=== PATIENT | male | born 1990 | race Caucasian/White ===

== ENCOUNTER 2016-08-11 08:03 | Emergency (ER) | payer BC ==
[2016-08-11 08:11] VITALS: BP 141/81; PULSE 89; RESP 18; TEMP 99.2
[2016-08-11] MEDS ORDERED: ORPHENADRINE 30 MG/ML 2 ML VIAL IM STA (08:23)
[2016-08-11] MEDS ORDERED: KETOROLAC 60 MG/2 ML VIAL IM STA (08:23)
--- NOTE | 2016-08-11 08:26 | ED ---
Back Pain HPI - General Chief Complaint: Back Pain/Injury Stated Complaint: back pain Time Seen by Provider: 08/11/16 08:12 Source: patient Limitations: no limitations - History of Present Illness Initial Comments: Denies actual male patient presents to emergency department for complaints of right upper back spasm, to the area below the right shoulder blade. Patient states that this started a couple of days ago, seemed to start getting better, and then last evening got worse for him. Patient states that whenever he tries to do any twisting motion with his back the area spasms and makes it difficult for him to breathe. Patient states that he was unable to sleep last night due to this. Patient did try ibuprofen states it did not help much. Patient does not have any limitations with range of motion to the right arm. Patient denies any shortness of breath at rest, cough, fever, chills, chest pain, abdominal pain, nausea, vomiting, has patient, diarrhea, dysuria, hematuria, urgency or frequency. Patient denies any known injury. - Related Data Previous Rx's Medication Instructions Recorded Cyclobenzaprine [Flexeril] 10 mg PO TID #10 tab 08/11/16 Ibuprofen [Motrin] 600 mg PO Q6HR PRN #30 tab 08/11/16 Allergies Allergy/AdvReac Type Severity Reaction Status Date / Time No Known Allergies Allergy Verified 08/11/16 08:10 Review of Systems ROS Statement: Those systems with pertinent positive or pertinent negative responses have been documented in the HPI. ROS Other: All systems not noted in ROS Statement are negative. Past Medical History Past Medical History: No Reported History History of Any Multi-Drug Resistant Organisms: None Reported Past Surgical History: No Surgical Hx Reported Past Psychological History: No Psychological Hx Reported Smoking Status: Never smoker Past Alcohol Use History: Occasional Past Drug Use History: None Reported General Exam Limitations: no limitations General appearance: alert, in no apparent distress Head exam: Present: atraumatic, normocephalic, normal inspection Eye exam: Present: normal appearance, PERRL, EOMI. Absent: scleral icterus, conjunctival injection, periorbital swelling ENT exam: Present: normal exam, mucous membranes moist Neck exam: Present: normal inspection, full ROM. Absent: tenderness, meningismus, lymphadenopathy Respiratory exam: Present: normal lung sounds bilaterally. Absent: respiratory distress, wheezes, rales, rhonchi, stridor Cardiovascular Exam: Present: regular rate, normal rhythm, normal heart sounds. Absent: systolic murmur, diastolic murmur, rubs, gallop, clicks GI/Abdominal exam: Present: soft, normal bowel sounds. Absent: distended, tenderness, guarding, rebound, rigid Extremities exam: Present: normal inspection, full ROM, normal capillary refill. Absent: tenderness, pedal edema, joint swelling, calf tenderness Back exam: Present: normal inspection. Absent: full ROM (Spasm with twisting motion, left or right), tenderness Neurological exam: Present: alert, oriented X3, CN II-XII intact Psychiatric exam: Present: normal affect, normal mood Skin exam: Present: warm, dry, intact, normal color. Absent: rash Course Vital Signs 08/11/16 08:07 Temperature 99.2 F Pulse Rate 89 Respiratory 18 Rate Blood Pressure 141/81 O2 Sat by Pulse 99 Oximetry Medical Decision Making - Medical Decision Making 26-year-old male patient presented to emergency department today for complaints of spasms to his right upper back, subscapular area. Patient onset of spasms during exam with twisting motion at the waist. Patient has no tenderness to the area, and full range of motion to the right shoulder. Symptoms most likely to represent muscle spasm. Patient will be given IM Norflex and Toradol here. Patient be discharged home with prescription for ibuprofen and Flexeril with instructions to apply warm moist heat 20 minutes on at least 4 times a day. Patient agrees to follow-up with his primary care physician for any continued symptoms. Patient agrees to return for any worsening, new, or concerning symptoms. Disposition Clinical Impression: Muscle spasm Disposition: HOME SELF-CARE Condition: Stable Instructions: Muscle Spasm (ED) Additional Instructions: Warm moist heat to the area 20 minutes on at least four times per day. Take medications as directed for pain relief. Follow up with primary care physician for continued symptoms. Return for any worsening, new, or concerning symptoms. Prescriptions: Cyclobenzaprine [Flexeril] 10 mg PO TID #10 tab Ibuprofen [Motrin] 600 mg PO Q6HR PRN #30 tab PRN Reason: Pain Referrals: Antonio Diaz MD [Primary Care Provider] - 1-2 days Time of Disposition: 08:26
== END 2016-08-11 13:53 | disposition home or self-care (01) ==
LOC: EC 08:03
DX: M62.830 Muscle spasm of back (principal)
CPT/HCPCS: 99283; 96372 ×2; J2360; J1885

== ENCOUNTER 2019-03-13 13:18 | Emergency (ER) | payer BC ==
[2019-03-13 13:22] VITALS: RESP 16
[2019-03-13] MEDS ORDERED: SODIUM CHLORIDE 0.9% 500 ML 500 ML IV STA (13:43)
--- NOTE | 2019-03-13 13:46 | ED ---
Abdominal Pain HPI - General Chief Complaint: Abdominal Pain Stated Complaint: Abd Pain Time Seen by Provider: 03/13/19 13:25 Source: patient Mode of arrival: ambulatory Limitations: no limitations - History of Present Illness Initial Comments: Patient is a 29-year-old male presenting to emergency Department with a chief complaint of abdominal pain. Patient reports the symptoms started about 2 days ago in the right lower quadrant with a cramping sensation that is about a 4. Patient reports intermittent nausea but no actual vomiting. Patient denies any increased urgency or frequency or dysuria. Patient denies diarrhea or constipation. Patient denies any trauma to the region. Patient reports the pain is exacerbated whenever pressure is applied to the region. Patient reports the pain is not related to healing take. Patient denies any previous abdominal surgery. Patient denies fevers night sweats or chills. Patient denies penile discharge, testicular pain or swelling. - Related Data Previous Rx's Medication Instructions Recorded Ondansetron Odt [Zofran Odt] 4 mg PO Q8HR PRN #10 tab 03/13/19 Allergies Allergy/AdvReac Type Severity Reaction Status Date / Time No Known Allergies Allergy Verified 03/13/19 13:59 Review of Systems ROS Statement: Those systems with pertinent positive or pertinent negative responses have been documented in the HPI. ROS Other: All systems not noted in ROS Statement are negative. Past Medical History Past Medical History: No Reported History History of Any Multi-Drug Resistant Organisms: None Reported Past Surgical History: No Surgical Hx Reported Past Psychological History: No Psychological Hx Reported Smoking Status: Light tobacco smoker Past Alcohol Use History: Occasional Past Drug Use History: None Reported General Exam Limitations: no limitations General appearance: alert, in no apparent distress Head exam: Present: atraumatic, normocephalic, normal inspection Eye exam: Present: normal appearance Pupils: Present: normal accommodation ENT exam: Present: normal exam, normal oropharynx, mucous membranes moist, TM's normal bilaterally, normal external ear exam Neck exam: Present: normal inspection, full ROM Respiratory exam: Present: normal lung sounds bilaterally Cardiovascular Exam: Present: regular rate, normal rhythm, normal heart sounds GI/Abdominal exam: Present: soft, tenderness (Right lower quadrant. Positive McBurney point tenderness. Negative Rovsing, negative obturator, negative psoas, negative King sign.), normal bowel sounds. Absent: distended, guardin g, rebound, rigid, hernia Extremities exam: Present: normal inspection, full ROM Back exam: Present: normal inspection, full ROM Neurological exam: Present: alert, oriented X3 Psychiatric exam: Present: normal affect, normal mood Skin exam: Present: warm, intact, normal color Course Vital Signs 03/13/19 03/13/19 13:20 14:36 Temperature 98.4 F 97.9 F Pulse Rate 70 63 Respiratory 16 16 Rate Blood Pressure 146/78 148/73 O2 Sat by Pulse 100 97 Oximetry Medical Decision Making - Medical Decision Making Patient is a 29-year-old male presenting to the emergency department with chief complaint of abdominal pain and nausea. Patient was given antiemetics with improvement in symptoms. Patient was also given IV fluids and Toradol for pain control. Physical examination is only positive for McBurney point tenderness but no other signs of appendicitis. Patient is not have leukocytosis. However, patient does have decreased kidney function. Patient declines any use of alcohol or drugs. Patient reports she only used NSAIDs twice since yesterday. Patient denies any obstructive urinary symptoms. UA is only showing mild ketones which I suspect to be secondary to mild dehydration. I advised the patient to follow-up with urology considering the decreased kidney function. Strict return parameters were thoroughly discussed with patient was under standing and agreeable. Case discussed physician. - Lab Data Result diagrams: 03/13/19 13:55 03/13/19 13:55 Lab Results 03/13/19 03/13/19 03/13/19 Range/Units 13:51 13:55 13:55 WBC 6.1 (3.8-10.6) k/uL RBC 4.76 (4.30-5.90) m/uL Hgb 15.0 (13.0-17.5) gm/dL Hct 42.9 (39.0-53.0) % MCV 90.2 (80.0-100.0) fL MCH 31.4 (25.0-35.0) pg MCHC 34.9 (31.0-37.0) g/dL RDW 13.1 (11.5-15.5) % Plt Count 160 (150-450) k/uL Neutrophils % 65 % Lymphocytes % 24 % Monocytes % 5 % Eosinophils % 2 % Basophils % 1 % Neutrophils # 3.9 (1.3-7.7) k/uL Lymphocytes # 1.5 (1.0-4.8) k/uL Monocytes # 0.3 (0-1.0) k/uL Eosinophils # 0.1 (0-0.7) k/uL Basophils # 0.1 (0-0.2) k/uL Sodium 139 (137-145) mmol/L Potassium 4.6 (3.5-5.1) mmol/L Chloride 103 (98-107) mmol/L Carbon Dioxide 25 (22-30) mmol/L Anion Gap 11 mmol/L BUN 23 H (9-20) mg/dL Creatinine 1.44 H (0.66-1.25) mg/dL Est GFR (CKD-EPI)AfAm 75 (>60 ml/min/1.73 sqM) Est GFR (CKD-EPI)NonAf 65 (>60 ml/min/1.73 sqM) Glucose 103 H (74-99) mg/dL Calcium 9.8 (8.4-10.2) mg/dL Total Bilirubin 0.8 (0.2-1.3) mg/dL AST 38 (17-59) U/L ALT 39 (21-72) U/L Alkaline Phosphatase 72 (38-126) U/L Total Protein 8.1 (6.3-8.2) g/dL Albumin 5.0 (3.5-5.0) g/dL Amylase 85 (30-110) U/L Lipase 104 (23-300) U/L Urine Color Yellow Urine Appearance Clear (Clear) Urine pH 7.0 (5.0-8.0) Ur Specific [place] 1.028 (1.001-1.035) Urine Protein Negative (Negative) Urine Glucose (UA) Negative (Negative) Urine Ketones Trace H (Negative) Urine Blood Negative (Negative) Urine Nitrite Negative (Negative) Urine Bilirubin Negative (Negative) Urine Urobilinogen 2.0 (<2.0) mg/dL Ur Leukocyte Esterase Negative (Negative) Disposition Clinical Impression: Right lower quadrant abdominal pain Disposition: HOME SELF-CARE Condition: Stable Instructions (If sedation given, give patient instructions): Abdominal Pain (ED) Additional Instructions: Please follow up with a urologist. Please return to emergency department if sy mptoms worsen. Please take prescribed medication as directed. Please drink lots of fluids and avoid using NSAID medication. Prescriptions: Ondansetron Odt [Zofran Odt] 4 mg PO Q8HR PRN #10 tab PRN Reason: Nausea Is patient prescribed a controlled substance at d/c from ED?: No Referrals: Angela Moulton MD [Primary Care Provider] - 1-2 days Kevin Reyes MD [STAFF PHYSICIAN] - 1-2 days Time of Disposition: 14:48
[2019-03-13 14:06] LABS: Basophils # (A) 0.1 k/uL (0-0.2); Basophils % (A) 1 %; Eosinophils # (A) 0.1 k/uL (0-0.7); Eosinophils % (A) 2 %; HCT 42.9 % (39.0-53.0); Lymphocytes # (A) 1.5 k/uL (1.0-4.8); Lymphocytes % (A) 24 %; MCH 31.4 pg (25.0-35.0); MCHC 34.9 g/dL (31.0-37.0); MCV 90.2 fL (80.0-100.0); Mean Platelet Volume 6.8; Monocytes # (A) 0.3 k/uL (0-1.0); Monocytes % (A) 5 %; Neutrophils # (A) 3.9 k/uL (1.3-7.7); Neutrophils % (A) 65 %; Platelet Count 160 k/uL (150-450); RBC 4.76 m/uL (4.30-5.90); RDW 13.1 % (11.5-15.5); WBC 6.1 k/uL (3.8-10.6)
[2019-03-13 14:15] LABS: Appearance,Urine Clear (Clear); Bilirubin,Urine Negative (Negative); Blood,Urine Negative (Negative); Color,Urine Yellow; Glucose,Urine (UA) Negative (Negative); Ketones,Urine Trace (Negative); Leukocyte Esterase,Urine Negative (Negative); Nitrite,Urine Negative (Negative); Protein,Urine Negative (Negative); Specific Gravity,Urine 1.028 (1.001-1.035)
[2019-03-13 14:17] LABS: Calcium 9.8 mg/dL (8.4-10.2); Potassium 4.6 mmol/L (3.5-5.1); Total Bilirubin 0.8 mg/dL (0.2-1.3); Total Protein 8.1 g/dL (6.3-8.2)
--- NOTE | 2019-03-13 14:17 | XR ---
EXAMINATION TYPE: XR KUB DATE OF EXAM: 03/13/2019 COMPARISON: None INDICATION: Abdomen pain TECHNIQUE: Single view abdomen upright view FINDINGS: There is a normal bowel gas pattern. No free air is evident. No suspicious differential air-fluid lev els are present. Psoas margins are normal. No organomegaly is present. IMPRESSION: 1. Unremarkable Abdomen
[2019-03-13] MEDS ORDERED: ONDANSETRON 4 MG/2 ML VIAL IVP STA (14:27)
[2019-03-13 14:40] VITALS: BP 148/73; PULSE 63; TEMP 97.9
== END 2019-03-13 14:50 | disposition home or self-care (01) ==
LOC: EC 13:18
DX: R10.31 Right lower quadrant pain (principal); R11.0 Nausea; F17.200 Nicotine dependence, unspecified, uncomplicated
CPT/HCPCS: 36415; 80053; 82150; 83690; 85025; 81003; 74018; 99284; 96374; 96361; J2405

== ENCOUNTER 2020-12-30 12:11 | Emergency (ER) | payer BC ==
[2020-12-30 12:16] VITALS: BP 142/90; PULSE 80; RESP 18; TEMP 98.1
[2020-12-30] MEDS ORDERED: RABIES VACCINE (PCEC) 2.5 UNIT KIT IM ONE (12:52)
[2020-12-30] MEDS ORDERED: RABIES IMMUNE GLOB 300 UNIT/ML 1 ML VIAL IM ONE (12:52)
[2020-12-30] MEDS ORDERED: RABIES IMMUNE GLOB 300 UNIT/ML 5 ML VIAL IM ONE (13:00)
--- NOTE | 2020-12-30 13:21 | ED ---
General Adult HPI - General Chief complaint: Recheck/Abnormal Lab/Rx Stated complaint: InQuicker/Rabies Shot Time Seen by Provider: 12/30/20 12:31 Source: patient Mode of arrival: ambulatory Limitations: no limitations - History of Present Illness Initial comments: 30-year-old male presents to the emergency room for rabies vaccines. Patient states that he had a bout in his bedroom for over a day. He does not think he was bitten but read about it online that he should get vaccines. Pt denies any symptoms. The bat was found in his house yesterday.Patient has no other complaints at this time including shortness of breath, chest pain, abdominal pain, nausea or vomiting, headache, or visual changes. - Related Data Previous Rx's Medication Instructions Recorded Ondansetron Odt [Zofran Odt] 4 mg PO Q8HR PRN #10 tab 03/13/19 Allergies Allergy/AdvReac Type Severity Reaction Status Date / Time No Known Allergies Allergy Verified 12/30/20 12:16 Review of Systems ROS Statement: Those systems with pertinent positive or pertinent negative responses have been documented in the HPI. ROS Other: All systems not noted in ROS Statement are negative. Past Medical History Past Medical History: No Reported History History of Any Multi-Drug Resistant Organisms: None Reported Past Surgical History: No Surgical Hx Reported Past Psychological History: No Psychological Hx Reported Smoking Status: Vaper Past Alcohol Use History: Occasional Past Drug Use History: None Reported General Exam Limitations: no limitations General appearance: alert Head exam: Present: atraumatic Eye exam: Present: normal appearance, PERRL, EOMI. Absent: scleral icterus, conjunctival injection ENT exam: Present: normal exam, mucous membranes moist Neck exam: Present: normal inspection, full ROM. Absent: tenderness Respiratory exam: Present: normal lung sounds bilaterally. Absent: respiratory distress, wheezes Cardiovascular Exam: Present: regular rate, normal rhythm, normal heart sounds Extremities exam: Present: other (pt has 2 papules on his left lower leg that does not appear to be a bite wound.) Course Vital Signs 12/30/20 12:12 Temperature 98.1 F Pulse Rate 80 Respiratory 18 Rate Blood Pressure 142/90 O2 Sat by Pulse 100 Oximetry Medical Decision Making - Medical Decision Making Patient immunized for rabies at this time. Injections given by RN. Patient will follow-up for further rabies immunizations. Prescription written. He'll return here for any worsening symptoms. Disposition Clinical Impression: Need for immunization against rabies Disposition: HOME SELF-CARE Condition: Good Instructions (If sedation given, give patient instructions): Rabies Vaccine (ED) Additional Instructions: Please continue your rabies series as directed: 01/02/2021 01/06/2021 01/13/2021 Return to the emergency room for any worsening symptoms. Follow-up with primary care. Is patient prescribed a controlled substance at d/c from ED?: No Referrals: Angela Moulton MD [Primary Care Provider] - 1-2 days Time of Disposition: 13:04
== END 2020-12-30 13:49 | disposition home or self-care (01) ==
LOC: EC 12:11
DX: Z23 Encounter for immunization (principal); F17.290 Nicotine dependence, other tobacco product, uncomplicated
CPT/HCPCS: 90375; 90471; 90675; 96372; 99281

== ENCOUNTER 2022-03-13 13:06 | Emergency (ER) | payer BC ==
--- NOTE | 2022-03-13 15:39 | ED ---
Chest Pain HPI - General Chief Complaint: Chest Pain Stated Complaint: Chest pains, COVID+ Time Seen by Provider: 03/13/22 15:08 Source: patient, RN notes reviewed Mode of arrival: ambulatory Limitations: no limitations - History of Present Illness Initial Comments: This is an otherwise healthy 32-year-old male presents to the emergency department complaining of fleeting chest pains which is about 1 week. It comes for about 1 second at a time to left chest that resolved. Patient states it seems to come and go for several minutes and then stops. He states then it'll go a long time without being present. March recur. Is not related to any activity. Related to exertion. No alleviating or exacerbating factors. Patient does have other symptomatology which started a few days ago, runny nose, sore throat, body aches, fatigue, patient tested positive for COVID-19 yesterday. Patient called his regular physician and had a virtual appointment. Was told to come here for further testing. REVIEW of systems: Body aches, fatigue, subjective fever, sore throat, runny nose , no changes in vision or hearing, no sore throat or difficulty with speech, no neck pain, no shortness of breath, no abdominal pain, no nausea or vomiting, no changes in urination or bowel movements, no numbness or tingling, no extremity pain, no skin rashes or lesions. Past medical, surgical, social, and family history reviewed. Patient does not smoke cigarettes, however, he does vape. No history of blood clots or coagulopathies. No recent surgeries. No recent immobilization. No family history of clotting. - Related Data Previous Rx's Medication Instructions Recorded Ondansetron Odt [Zofran Odt] 4 mg PO Q8HR PRN #10 tab 03/13/19 Allergies Allergy/AdvReac Type Severity Reaction Status Date / Time No Known Allergies Allergy Verified 03/13/22 13:20 Review of Systems ROS Statement: Those systems with pertinent positive or pertinent negative responses have been documented in the HPI. ROS Other: All systems not noted in ROS Statement are negative. EKG Findings - EKG Comments: EKG Findings:: EKG done at 1343 mg ED attending physician as sinus rhythm with a rate of 65, normal intervals, normal axis, no acute ST or T-wave changes, normal QRS morphology. Past Medical History Past Medical History: No Reported History History of Any Multi-Drug Resistant Organisms: None Reported Past Surgical History: No Surgical Hx Reported Past Psychological History: No Psychological Hx Reported Smoking Status: Vaper Past Alcohol Use History: Occasional Past Drug Use History: None Reported General Exam - General Exam Comments Initial Comments: Healthy-appearing male in no acute distress. Patient does not appear to be ill or toxic. Vital signs stable, patient is not tachycardic, SpO2 in room air is 100%. Limitations: no limitations General appearance: alert, in no apparent distress Head exam: Present: atraumatic, normocephalic, normal inspection Eye exam: Present: normal appearance, PERRL, EOMI. Absent: scleral icterus, conjunctival injection, periorbital swelling ENT exam: Present: normal exam, normal oropharynx, mucous membranes dry, mucous membranes moist, normal external ear exam Neck exam: Present: normal inspection, full ROM. Absent: tenderness, meningismus, lymphadenopathy Respiratory exam: Present: normal lung sounds bilaterally, chest wall tenderness (Minimal). Absent: respiratory distress, wheezes, rales, rhonchi, stridor, accessory muscle use, decreased breath sounds, prolonged expiratory Cardiovascular Exam: Present: regular rate, normal rhythm, normal heart sounds. Absent: systolic murmur, diastolic murmur, rubs, gallop, clicks GI/Abdominal exam: Present: soft, normal bowel sounds. Absent: distended, tenderness, guarding, rebound, rigid Extremities exam: Present: normal inspection, full ROM, normal capillary refill. Absent: tenderness, pedal edema, joint swelling, calf tenderness Back exam: Present: normal inspection Neurological exam: Present: alert, oriented X3, CN II-XII intact Psychiatric exam: Present: normal affect, normal mood Skin exam: Present: warm, dry, intact, normal color. Absent: rash Course Vital Signs 03/13/22 03/13/22 13:17 15:35 Temperature 98.4 F Pulse Rate 71 Respiratory 16 18 Rate Blood Pressure 154/90 O2 Sat by Pulse 100 Oximetry Chest Pain MDM - MDM Patient symptomology most consistent with nonspecific chest wall pain. Likely related to COVID-19 as the patient's positive. Patient's PERC score is 0. Patient's heart rate 65 EKG. SpO2 100% on room air. Patient no tachypnea. No edema. After a long discussion with the patient regarding his symptomology, vital signs, well appearance. I did discuss the possibility of cardiac, vascular etiologies and offered a workup. Patient currently asymptomatic. After discussing the modality of perc score with the patient and discussing his well appearance and current symptomology, patient is deferring further workup. Patient is alert and oriented 4, is of sound mind and able to make his own medical decisions. Discussed risks versus benefits. The case was discussed in detail with ED attending physician. Presentation, findings, treatment plan discussed in detail. Supervising physician Dr. Hurley Chest x-ray shows no acute findings Disposition Clinical Impression: COVID-19, Acute chest wall pain, Elevated blood pressure reading Disposition: HOME SELF-CARE Condition: Good Instructions (If sedation given, give patient instructions): Chest Wall Pain (ED), COVID-19 (Coronavirus Disease 2019) (ED) Additional Instructions: SELF QUARANTINE DISCHARGE: As you are at risk for symptoms due to coronavirus, please stay home and stay away from others as much as possible. Please maintain social distance of 6 feet if possible. You should not return to work until at least 3 days (72 hours) have passed since recovery of symptoms. This defined as resolution of fever without the use of fever reducing medicines and improvement in respiratory symptoms (e.g,, cough, shortness of breath) Isolation can end at least 5 days after symptom onset and after fever ends for 24 hours (without the use of fever-reducing medication) and symptoms are improving, if these people can continue to properly wear a well-fitted mask around others for 5 more days after the 5-day isolation period. If you're still having symptoms at the end of 5 day period, isolate for an additional 5 days. More information about what to do if you are sick can be found on the CDC website at https://www.cdc.gov/coronavirus/2019-ncov/bb-tkt-ksg-sick/hbadt-lxtm-ppxa.html Expect the symptoms to last for 7-14 days from onset. Use acetaminophen (Tylenol) as needed for discomfort. You can take a maximum of 1 gram every 6 hours for discomfort, with your total dose in 24 hours not exceeding 4 grams. Be sure to maintain hydration. Drink continuous water and/or items high in vitamin C, such as orange juice and/or lemonade. Unless you have high blood pressure, you may consider Sudafed (which is [id number]) for nasal congestion. I would suggest that a short acting Sudafed rather than the 24 hour Sudafed. For a cough you may take Mucinex or Robitussin. Also consider the use of Vicks Vapor Rub or your chest when you sleep. Use a humidifier that is cleaned frequently, in the bedroom at night. For Nausea /Vomiting/Diarrhea associated with your Illness: o Small frequent sips of room temperature liquids. o Diet: [place] Foods - If you are still experiencing discomfort and/or nausea please slowly advancing your diet using the BRAT Diet = bananas, rice, apples/apple sauce, toast. o With diarrhea avoid any dairy for 48 hours after symptoms resolved. o Continue with activity as tolerated. If your symptoms do get worse and you believe that the upper respiratory infection has developed into something else, such as pneumonia or severe dehydration, please return to the emergency department or follow-up with your primary care. But expect to be symptomatic for the days as indicated above Pressure was mildly elevated today. This should be watched by your regular physician. Is patient prescribed a controlled substance at d/c from ED?: No Referrals: Angela Moulton MD [Primary Care Provider] - 1-2 days Time of Disposition: 15:38
--- NOTE | 2022-03-13 15:43 | XR ---
EXAMINATION TYPE: XR chest 2V DATE OF EXAM: 03/13/2022 COMPARISON: NONE HISTORY: Chest pain TECHNIQUE: Frontal and lateral views of the chest are obtained. FINDINGS: There is no focal air space opacity. No evidence for pneumothorax. No pleural effusion. The cardiac silhouette size is within normal limits. The osseous structures are grossly intact. IMPRESSION: 1. No acute cardiopulmonary process.
[2022-03-13 16:02] VITALS: RESP 18
[2022-03-13] MEDS ORDERED: KETOROLAC 15 MG/ML 1 ML VIAL IM STA (16:18)
[2022-03-13 16:27] VITALS: BP 113/69; PULSE 60; TEMP 98.3
== END 2022-03-13 16:27 | disposition home or self-care (01) ==
LOC: EC 13:06
DX: U07.1 COVID-19 (principal); R03.0 Elevated blood-pressure reading, without diagnosis of hypertension; F17.290 Nicotine dependence, other tobacco product, uncomplicated
CPT/HCPCS: 71046; 93005; 96372; 99285

== ENCOUNTER 2023-01-12 09:51 | Emergency (ER) | payer BC ==
--- NOTE | 2023-01-12 10:40 | ED ---
General Adult HPI - General Chief complaint: Abdominal Pain Stated complaint: UC SENT-APPENDIX Time Seen by Provider: 01/12/23 10:07 Source: patient, RN notes reviewed Mode of arrival: ambulatory Limitations: no limitations - History of Present Illness Initial comments: [id number] male presents to the emergency department chief complaint of right upper quadrant pain. He states that he was evaluated at urgent care earlier today who recommended he come to the emergency department for appendicitis rule out. He states that the pain started about 2 days ago as stabbing pain in the right upper quadrant which radiated to the right testicle lasting about 3-5 seconds at a time occurring hourly. He states that when he woke up today the pain has changed to a pressure in the right lower quadrant that is constant. He reports normal bowel movements, regular urinary habits without hematuria, dysuria. He admits to fever 2 days ago but has not had one since. - Related Data Previous Rx's Medication Instructions Recorded Ondansetron Odt [Zofran Odt] 4 mg PO Q8HR PRN #10 tab 03/13/19 Allergies Allergy/AdvReac Type Severity Reaction Status Date / Time No Known Allergies Allergy Verified 01/12/23 10:02 Review of Systems ROS Statement: Those systems with pertinent positive or pertinent negative responses have been documented in the HPI. ROS Other: All systems not noted in ROS Statement are negative. Past Medical History Past Medical History: No Reported History History of Any Multi-Drug Resistant Organisms: None Reported Past Surgical History: No Surgical Hx Reported Past Psychological History: No Psychological Hx Reported Smoking Status: Vaper Past Alcohol Use History: Occasional Past Drug Use History: Marijuana General Exam Limitations: no limitations General appearance: alert, in no apparent distress Head exam: Present: atraumatic, normocephalic, normal inspection Eye exam: Present: normal appearance, PERRL, EOMI. Absent: scleral icterus, conjunctival injection, periorbital swelling ENT exam: Present: normal exam, mucous membranes moist Neck exam: Present: normal inspection. Absent: tenderness, meningismus, lympha denopathy Respiratory exam: Present: normal lung sounds bilaterally. Absent: respiratory distress, wheezes, rales, rhonchi, stridor Cardiovascular Exam: Present: regular rate, normal rhythm, normal heart sounds. Absent: systolic murmur, diastolic murmur, rubs, gallop, clicks GI/Abdominal exam: Present: soft, tenderness (RLQ ), normal bowel sounds. Absent: distended, guarding, rebound, rigid exam: Present: normal inspection. Absent: testicular tenderness, urethral discharge Extremities exam: Present: normal inspection, full ROM, normal capillary refill. Absent: tenderness, pedal edema, joint swelling, calf tenderness Back exam: Present: normal inspection Neurological exam: Present: alert, oriented X3 Psychiatric exam: Present: normal affect, normal mood Skin exam: Present: warm, dry, intact, normal color. Absent: rash Course Vital Signs 01/12/23 01/12/23 10:00 14:08 Temperature 98.1 F 97.6 F Pulse Rate 68 64 Respiratory 18 14 Rate Blood Pressure 139/78 120/73 O2 Sat by Pulse 99 97 Oximetry Medical Decision Making - Medical Decision Making Was pt. sent in by a medical professional or institution (, PA, COMMUNICATIONS SUPERINTENDENT, urgent care, hospital, or halfway...) When possible be specific @ -No Did you speak to anyone other than the patient for history (EMS, parent, family, police, friend...)? What history was obtained from this source @ -No Did you review nursing and triage notes (agree or disagree)? Why? @ -I reviewed and agree with nursing and triage notes Were old charts reviewed (outside hosp., previous admission, EMS record, old EKG, old radiological studies, urgent care reports/EKG's, halfway records)? Report findings @ -No old charts were reviewed Differential Diagnosis (chest pain, altered mental status, abdominal pain women, abdominal pain men, vaginal bleeding, weakness, fever, dyspnea, syncope, headache, dizziness, GI bleed, back pain, seizure, CVA, palpatations, mental health, musculoskeletal)? @ -Differential Abdominal Pain Men: Appendicitis, cholecystitis, diverticulosis, ischemic bowel, pancreatitis, hepatitis, UTI, gastroenteritis, AAA, incarcerated hernia, bowel obstruction, constipation, inflammatory bowel, hepatitis, peptic ulcer disease, splenic infarction, perforated viscus, testicular torsion, this is not meant to be an all-inclusive list EKG interpreted by me (3pts min.). @ -None X-rays interpreted by me (1pt min.). @ -None done CT interpreted by me (1pt min.). @ -CT abdomen and pelvis shows prominent fluid-filled small bowel loops, mild vertebral bladder wall thickening, mildly enlarged prostate U/S interpreted by me (1pt. min.). @ -Ultrasound obtained which shows no evidence for testicular torsion, mild varicoceles What testing was considered but not performed or refused? (CT, X-rays, U/S, labs)? Why? @ -None What meds were considered but not given or refused? Why? @ -None Did you discuss the management of the patient with other professionals (professionals i.e. Dr., PA, COMMUNICATIONS SUPERINTENDENT, lab, RT, psych nurse, oncology social work, padded products inspector trimmer, teacher, forest fire management officer, rifle case repairer)? Give summary @ -No Was smoking cessation discussed for >3mins.? @ -No Was critical care preformed (if so, how long)? @ -No Were there social determinants of health that impacted care today? How? (Homelessness, low income, unemployed, alcoholism, drug addiction, transportation, low edu. Level, literacy, decrease access to med. care, shelter, rehab)? @ -No Was there de-escalation of care discussed even if they declined (Discuss DNR or withdrawal of care, Hospice)? DNR status @ -No What co-morbidities impacted this encounter? (DM, HTN, Smoking, COPD, CAD, Cancer, CVA, ARF, Chemo, Hep., AIDS, mental health diagnosis, sleep apnea, morbid obesity)? @ -None Was patient admitted / discharged? Hospital course, mention meds given and route, prescriptions, significant lab abnormalities, going to OR and other pertinent info. @ -Discharged. Patient was in the emergency department chief complaint of right lower quadrant pain that radiates to the testicle. He states it started going on for around 2 days. CBC and CMP within normal limits. UA shows no evidence of infection. Ultrasound shows no evidence for testicular torsion. CT abdomen and pelvis shows prominent fluid-filled small bowel loops, mild vertebral bladder wall thickening, mildly enlarged prostate. Patient advised of these findings and agreeable with plan of discharge. Patient given outpatient urology follow-up. Patient stable at time of discharge. Case discussed with attending, Dr. Mckenzie. Undiagnosed new problem with uncertain prognosis? @ -No Drug Therapy requiring intensive monitoring for toxicity (Heparin, Nitro, Insulin, Cardizem)? @ -No Were any procedures done? @ -No Diagnosis/symptom? @ -abdominal pain Acute, or Chronic, or Acute on Chronic? @ -acute Uncomplicated (without systemic symptoms) or Complicated (systemic symptoms)? @ -uncomplicated Side effects of treatment? @ -No Exacerbation, Progression, or Severe Exacerbation? @ -No Poses a threat to life or bodily function? How? (Chest pain, [place], [place], pneumonia, PE, COPD, DKA, ARF, appy, cholecystitis, CVA, Diverticulitis, Homicidal, Suicidal, threat to staff... and all critical care pts) @ -No - Lab Data Result diagrams: 01/12/23 10:28 01/12/23 10: Lab Results 01/12/23 01/12/23 01/12/23 Range/Units 10:28 10: 10:28 WBC 5.2 (3.8-10.6) k/uL RBC 4.84 (4.30-5.90) m/uL Hgb 14.9 (13.0-17.5) gm/dL Hct 43.8 (39.0-53.0) % MCV 90.4 (80.0-100.0) fL MCH 30.8 (25.0-35.0) pg MCHC 34.1 (31.0-37.0) g/dL RDW 13.0 (11.5-15.5) % Plt Count 167 (150-450) k/uL MPV 8.2 Neutrophils % 59 % Lymphocytes % 31 % Monocytes % 6 % Eosinophils % 2 % Basophils % 0 % Neutrophils # 3.1 (1.3-7.7) k/uL Lymphocytes # 1.6 (1.0-4.8) k/uL Monocytes # 0.3 (0-1.0) k/uL Eosinophils # 0.1 (0-0.7) k/uL Basophils # 0.0 (0-0.2) k/uL Sodium 136 L (137-145) mmol/L Potassium 4.7 (3.5-5.1) mmol/L Chloride 101 (98-107) mmol/L Carbon Dioxide 27 (22-30) mmol/L Anion Gap 8 mmol/L BUN 20 (9-20) mg/dL Creatinine 0.78 (0.66-1.25) mg/dL Est GFR (CKD-EPI)AfAm >90 (>60 ml/min/1.73 sqM) Est GFR (CKD-EPI)NonAf >90 (>60 ml/min/1.73 sqM) Glucose 88 (74-99) mg/dL Plasma Lactic Acid Felipe (0.7-2.0) mmol/L Calcium 9.5 (8.4-10.2) mg/dL Total Bilirubin 0.7 (0.2-1.3) mg/dL AST 33 (17-59) U/L ALT 35 (4-49) U/L Alkaline Phosphatase 55 (38-126) U/L Total Protein 7.9 (6.3-8.2) g/dL Albumin 4.9 (3.5-5.0) g/dL Amylase 71 (30-110) U/L Lipase 92 (23-300) U/L Urine Color Yellow Urine Appearance Clear (Clear) Urine pH 6.0 (5.0-8.0) Ur Specific [place] 1.021 (1.001-1.035) Urine Protein Negative (Negative) Urine Glucose (UA) Negative (Negative) Urine Ketones Negative (Negative) Urine Blood Negative (Negative) Urine Nitrite Negative (Negative) Urine Bilirubin Negative (Negative) Urine Urobilinogen <2.0 (<2.0) mg/dL Ur Leukocyte Esterase Negative (Negative) 01/12/23 Range/Units 10:28 WBC (3.8-10.6) k/uL RBC (4.30-5.90) m/uL Hgb (13.0-17.5) gm/dL Hct (39.0-53.0) % MCV (80.0-100.0) fL MCH (25.0-35.0) pg MCHC (31.0-37.0) g/dL RDW (11.5-15.5) % Plt Count (150-450) k/uL MPV Neutrophils % % Lymphocytes % % Monocytes % % Eosinophils % % Basophils % % Neutrophils # (1.3-7.7) k/uL Lymphocytes # (1.0-4.8) k/uL Monocytes # (0-1.0) k/uL Eosinophils # (0-0.7) k/uL Basophils # (0-0.2) k/uL Sodium (137-145) mmol/L Potassium (3.5-5.1) mmol/L Chloride (98-107) mmol/L Carbon Dioxide (22-30) mmol/L Anion Gap mmol/L BUN (9-20) mg/dL Creatinine (0.66-1.25) mg/dL Est GFR (CKD-EPI)AfAm (>60 ml/min/1.73 sqM) Est GFR (CKD-EPI)NonAf (>60 ml/min/1.73 sqM) Glucose (74-99) mg/dL Plasma Lactic Acid Felipe 0.9 (0.7-2.0) mmol/L Calcium (8.4-10.2) mg/dL Total Bilirubin (0.2-1.3) mg/dL AST (17-59) U/L ALT (4-49) U/L Alkaline Phosphatase (38-126) U/L Total Protein (6.3-8.2) g/dL Albumin (3.5-5.0) g/dL Amylase (30-110) U/L Lipase (23-300) U/L Urine Color Urine Appearance (Clear) Urine pH (5.0-8.0) Ur Specific [place] (1.001-1.035) Urine Protein (Negative) Urine Glucose (UA) (Negative) Urine Ketones (Negative) Urine Blood (Negative) Urine Nitrite (Negative) Urine Bilirubin (Negative) Urine Urobilinogen (<2.0) mg/dL Ur Leukocyte Esterase (Negative) Disposition Clinical Impression: Abdominal pain Disposition: HOME SELF-CARE Condition: Stable Instructions (If sedation given, give patient instructions): Abdominal Pain (ED) Additional Instructions: Please follow up with a primary care provider and urology. Return to the emergency department for new or worsening symptoms. Is patient prescribed a controlled substance at d/c from ED?: No Referrals: Angela Moulton MD [Primary Care Provider] - 1-2 days Kevin Reyes MD [STAFF PHYSICIAN] - 1-2 days Time of Disposition: 12:55
[2023-01-12 10:51] LABS: Basophils % (A) 0 %; Eosinophils # (A) 0.1 k/uL (0-0.7); Eosinophils % (A) 2 %; HCT 43.8 % (39.0-53.0); HGB 14.9 gm/dL (13.0-17.5); Lymphocytes # (A) 1.6 k/uL (1.0-4.8); Lymphocytes % (A) 31 %; MCH 30.8 pg (25.0-35.0); MCHC 34.1 g/dL (31.0-37.0); MCV 90.4 fL (80.0-100.0); Mean Platelet Volume 8.2; Monocytes # (A) 0.3 k/uL (0-1.0); Monocytes % (A) 6 %; Neutrophils # (A) 3.1 k/uL (1.3-7.7); Neutrophils % (A) 59 %; Platelet Count 167 k/uL (150-450); RBC 4.84 m/uL (4.30-5.90); WBC 5.2 k/uL (3.8-10.6)
[2023-01-12 11:12] LABS: Appearance,Urine Clear (Clear); Bilirubin,Urine Negative (Negative); Blood,Urine Negative (Negative); Color,Urine Yellow; Glucose,Urine (UA) Negative (Negative); Ketones,Urine Negative (Negative); Leukocyte Esterase,Urine Negative (Negative); Nitrite,Urine Negative (Negative); Protein,Urine Negative (Negative); Specific Gravity,Urine 1.021 (1.001-1.035); Urobilinogen,Urine <2.0 mg/dL (<2.0)
[2023-01-12 11:15] LABS: ALT 35 U/L (4-49); AST 33 U/L (17-59); African American GFR (CKD) >90 (>60 ml/min/1.73 sqM); Albumin 4.9 g/dL (3.5-5.0); Alkaline Phosphatase 55 U/L (38-126); Amylase 71 U/L (30-110); Anion Gap 8 mmol/L; Blood Urea Nitrogen 20 mg/dL (9-20); Calcium 9.5 mg/dL (8.4-10.2); Carbon Dioxide 27 mmol/L (22-30); Chloride 101 mmol/L (98-107); Glucose 88 mg/dL (74-99); Lipase 92 U/L (23-300); Non-African American GFR(CKD) >90 (>60 ml/min/1.73 sqM); Potassium 4.7 mmol/L (3.5-5.1); Sodium 136 mmol/L (137-145); Total Bilirubin 0.7 mg/dL (0.2-1.3); Total Protein 7.9 g/dL (6.3-8.2)
--- NOTE | 2023-01-12 11:45 | US ---
EXAMINATION TYPE: US scrotum with doppler. TECHNIQUE: Grayscale and color Doppler Duplex imaging performed of the scrotum. DATE OF EXAM: 01/12/2023 COMPARISON: NONE CLINICAL INDICATION: Male, 33 years old with history of pain; rt sided testicular pain and swelling x 2 days, RLQ pain EXAM MEASUREMENTS: TESTICLES: Right Testicle: 3.7x2.5x2.6 cm Left Testicle: 3.8x2.7x2.4 cm EPIDIDYMIS HEAD: Right Epididymis: 0.9 cm Left Epididymis: 1.0 cm Doppler performed to assess for testicular vascularity; good bilateral color flow and waveforms are s een. There is no evidence of testicular torsion. Presence of hydroceles: no Presence of varicoceles: Small on both sides. Managing Consultant Clinical Professor notes: Mobile spermatic cord noted on right side. IMPRESSION: 1. No sonographic evidence for testicular torsion or mass. 2. Small bilateral varicoceles. 3. The link trainer maintenance worker notes a mobile right-sided spermatic cord during real-time scanning.
--- NOTE | 2023-01-12 12:08 | CT ---
EXAMINATION TYPE: CT abdomen pelvis w con DATE OF EXAM: 01/12/2023 COMPARISON: NONE HISTORY: 33-year-old male Right lower quadrant abdominal pain TECHNIQUE: Contiguous axial scanning of the abdomen and pelvis following administration of 100 ml Iso dusty 300 IV contrast. Delayed images through the kidneys and coronal/sagittal reconstructions perform ed. CT DLP: 989 mGycm Automated exposure control for dose reduction was used. FINDINGS: LUNG BASES: No significant abnormality is appreciated. LIVER/GB: No significant abnormality is appreciated. PANCREAS: No significant abnormality is seen. SPLEEN: No significant abnormality is seen. ADRENALS: No significant abnormality is seen. KIDNEYS: No significant abnormality is seen. BOWEL: Prominent fluid-filled small bowel loops throughout the abdomen and pelvis. Some liquid stool within the cecum as well. No dilated small bowel. Normal appendix. Mild stool burden. LYMPH NODES: No significant abnormality is seen. OTHER: No free fluid or free air. PELVIS: Mild circumferential bladder wall thickening may be chronic for the patient. Correlate to exc lude cystitis. Prostate gland mildly enlarged at 4.5 cm wide. There is a posterior midline prostatic cyst measuring 9 mm. No abnormal fluid collection otherwise seen in the pelvis or pelvic lymphadenopa thy. Bones: Mild disc bulge at L5-S1. IMPRESSION: 1. PROMINENT FLUID-FILLED SMALL BOWEL LOOPS THROUGHOUT THE ABDOMEN AND PELVIS. CONSIDER A MILD GENERA LIZED ENTERITIS. 2. MILD CERVICAL VERTEBRAL BLADDER WALL THICKENING MAY BE CHRONIC FOR THE PATIENT OR COULD REPRESENT CYSTITIS. THE PROSTATE GLAND IS MILDLY ENLARGED AT 4.57 M WHITE. 3. IN ADDITION, THERE IS A 9 MM MIDLINE POSTERIOR PROSTATIC CYST, LIKELY A PROSTATIC UTRICLE CYST. IF THIS IS FELT TO BE SYMPTOMATIC, CONSIDER UROLOGY REFERRAL.
[2023-01-12 14:10] VITALS: BP 120/73; PULSE 64; RESP 14; TEMP 97.6
== END 2023-01-12 15:02 | disposition home or self-care (01) ==
LOC: EC 09:51
DX: I86.1 Scrotal varices (principal); N40.0 Benign prostatic hyperplasia without lower urinary tract symptoms; F12.90 Cannabis use, unspecified, uncomplicated; F17.290 Nicotine dependence, other tobacco product, uncomplicated
CPT/HCPCS: 36415; 80053; 82150; 83605; 83690; 85025; 81003; 93975; 76870; 74177; 99284; Q9967